=== PATIENT | male | born 1980 | race Caucasian/White ===

== ENCOUNTER → 2023-11-03 08:02 | Outpatient (REF) | payer BC, SELFPAY | LOC: RAD 08:02 | PROVIDERS: ATTENDING PHYSICIAN Surgery; FAMILY PHYSICIAN Physician Assistant Medical | DX: K63.5 Polyp of colon (principal) | CPT/HCPCS: 71250; 74176 ==

== ENCOUNTER 2023-11-07 06:31 | Inpatient (IN) | payer BC, SELFPAY ==
[2023-10-31 07:33] VITALS: BMI 26.3
[2023-10-31 09:08] LABS: Hematocrit 44.5 % (39.0-52.0); Hemoglobin 15.2 g/dL (13.0-18.0); Mean Corp Hgb Conc. 34.2 g/dL (33.0-37.0); Mean Corpuscular Hgb 29.7 pg (27.0-31.0); Mean Corpuscular Volume 87.1 fL (80.0-94.0); Mean Platelet Volume 10.3 fL (7.4-10.4); Platelet Count 255 10^3/uL (130-400); Red Blood Cell Count 5.11 10^6/uL (4.70-6.10); Red Cell Dist. Width 13.2 % (11.5-14.5); White Blood Cell Count 6.5 10^3/uL (4.8-10.8)
[2023-10-31 09:36] LABS: INR 0.97; PT 12.9 Sec (11.4-14.6)
[2023-10-31 09:37] LABS: APTT 31.7 Sec (23.4-35.0)
[2023-10-31 09:54] LABS: ALT (SGPT) 26 U/L (0-50); AST (SGOT) 32 U/L (17-59); Albumin 4.7 g/dl (3.5-5.0); Alkaline Phosphatase 68 U/L (38-126); Blood Urea Nitrogen 14 mg/dl (9-20); Calcium 10.2 mg/dl (8.4-10.2); Carbon Dioxide 25 mmol/L (22-30); Chloride 104 mmol/L (98-107); Estimated Creatinine Clearance 99 ml/min; Glucose 94 mg/dl (70-99); Potassium 4.6 mmol/L (3.5-5.1); Sodium 140 mmol/L (135-145); Total Bilirubin 1.2 mg/dl (0.2-1.3); Total Protein 7.5 g/dl (6.3-8.2); eGFR > 60.00
[2023-10-31 10:49] LABS: CEA 3.66 ng/ml
[2023-10-31 12:16] LABS: Glycohemoglobin (HgbA1c) 5.5 % (4.0-5.6)
[2023-11-07] VITALS (16 sets, daily range): BP systolic 132–166; BP diastolic 81–109; BMI 26.3
[2023-11-07] MEDS: TYLENOL 1000 MG PO (10:50)
[2023-11-07] MEDS: LOVENOX 40 MG SC (10:51)
[2023-11-07] MEDS: ENTEREG 12 MG PO (10:51)
[2023-11-07] MEDS: NORMOSOL-R 1000 IV ×2 (10:52→17:15)
--- NOTE | 2023-11-07 16:36 | W.IMMPOSTOP ---
Surgical Immed Post Op Note
-
Primary Surgeon: Stuart Jose MD
Assistants: SUDHIR Del Real, Flower Salinas PA-C, GLENN Starkey
Pre-op Diagnosis: Cecal polyp
Post-op Diagnosis: Ascending colon polyp
Procedure Performed: Robotic right colectomy with isoperistaltic intracorporeal anastomosis
Anesthesia Type: GET
Specimen / Cultures: Right colon
Estimated Blood Loss: 27cc
Complications: None
Operative Findings: No evidence of metastatic disease
Carbon black in the proximal ascending colon
Large polypoid lesion in the proximal ascending colon
Patient's family updated.
[2023-11-07] MEDS: ZOFRAN 4 MG IV ×2 (17:16→22:45)
[2023-11-07] MEDS: TORADOL 15 MG IV ×2 (17:22→21:37)
[2023-11-07] MEDS: COMPAZINE 5 MG IV (17:47)
--- NOTE | 2023-11-07 18:06 | PTCARENOTE ---
Addendum... Patient has had small amounts of bile color secretions X4 despite antiemetics, DR Marcano aware and Dr Jose aware. Will allow more time in PACU, continue to manage.
[2023-11-07] MEDS: TYLENOL PO (18:36)
[2023-11-07] MEDS: TYLENOL 650 MG PO (21:35)
[2023-11-07] MEDS: CRESTOR 10 MG PO (21:35)
[2023-11-08] MEDS: TYLENOL PO (00:22)
[2023-11-08] MEDS: NORMOSOL-R 1000 IV ×3 (01:32→18:49)
[2023-11-08 03:30] VITALS: BP 128/79
[2023-11-08] MEDS: TORADOL 15 MG IV ×2 (03:51→09:07)
[2023-11-08] MEDS: TYLENOL 650 MG PO ×6 (03:57→23:09)
[2023-11-08 06:00] VITALS: BMI 25.2
[2023-11-08 06:35] LABS: % Immature Granulocytes 0.5 % (0-0.5); % Lymphocytes 6.5 % (20.5-51.1); % Monocytes 6.7 % (1.7-9.3); % Neutrophils 86.3 % (42.2-75.2); Absolute Immature Granulocytes 0.1 10^3/uL (0-0.05); Absolute Lymphocytes 0.7 10^3/uL (1.2-3.4); Absolute Monocytes 0.8 10^3/uL (0.1-0.6); Absolute Neutrophils 9.7 10^3/uL (1.4-6.5); Hematocrit 42.2 % (39.0-52.0); Hemoglobin 14.7 g/dL (13.0-18.0); Mean Corp Hgb Conc. 34.8 g/dL (33.0-37.0); Mean Corpuscular Hgb 29.9 pg (27.0-31.0); Mean Corpuscular Volume 85.8 fL (80.0-94.0); Mean Platelet Volume 9.7 fL (7.4-10.4); Nucleated Red Blood Cells % 0 % (-); Platelet Count 272 10^3/uL (130-400); Red Blood Cell Count 4.92 10^6/uL (4.70-6.10); Red Cell Dist. Width 12.5 % (11.5-14.5); White Blood Cell Count 11.2 10^3/uL (4.8-10.8)
[2023-11-08 07:00] VITALS: BP 138/75
[2023-11-08 07:06] LABS: Blood Urea Nitrogen 10 mg/dl (9-20); Calcium 9.4 mg/dl (8.4-10.2); Carbon Dioxide 25 mmol/L (22-30); Chloride 103 mmol/L (98-107); Estimated Creatinine Clearance 121 ml/min; Glucose 121 mg/dl (70-99); Potassium 4.6 mmol/L (3.5-5.1); Sodium 135 mmol/L (135-145); eGFR > 60.00
[2023-11-08] MEDS: PROTONIX 40 MG PO (09:07)
[2023-11-08] MEDS: ENTEREG 12 MG PO ×2 (09:07→20:28)
--- NOTE | 2023-11-08 10:07 | W.PN.CRS1 ---
Today's Communication / Plan
-
continue clears possible advancement later today
OOB
lovenox
d/c pina
Assessment/Plan
-
POD#1 Robotic right colectomy with isoperistaltic intracorporeal anastomosis
1. Vitals normal.
2. WBC 11.2, as expected post op. Labs otherwise normal.
3. OOB as tolerated.
4. Okay to shower.
5. D/C pina.
6. Lovenox, TEDS/SCDS for DVT prophylaxis.
7. Continue clears, possible advancement to fulls or low residue later today if feels up for it.
8. Pain medication: Tylenol/Toradol standing, Dilaudid PRN.
9. OR pathology pending.
Subjective Data
Procedure
11/07/2023- Robotic right colectomy with isoperistaltic intracorporeal anastomosis
Subjective Data
Date of Service: November 08, 2023
Patient states he vomited overnight. He has no flatus yet. He is burping. His pain is controlled.
Objective Data
-
Vital Signs
Temp Pulse Resp BP Pulse Ox
98.4 F 64 18 138/75 96
11/08/23 07:00 11/08/23 07:00 11/08/23 07:00 11/08/23 07:00 11/08/23 07:00
Intake & Output
11/07/23 11/08/23 11/09/23
06:59 06:59 06:59
Intake Total 500 / 500
Output Total 3380 / 3380
Balance -2880 / -2880
Intake:
IV fluids (Total) 500 / 500
normosol 500 / 500
Output:
Emesis 105 / 105
Urine, Pina 3275 / 3275
Other:
Number of immeasurable emeses? 2
Lab Results
11/08/23 05:56
11/08/23 05:56
Physical Exam
-
General: No Acute Distress and AOx3
Abdomen: Soft, Non Distended and Tender (around incisions)
Skin: Warm and Dry
Incision: Clear, Dry, Intact and Other (one left/midline incision with old blood, gauze applied. )
[2023-11-08 11:05] VITALS: BP 159/109
--- NOTE | 2023-11-08 11:47 | CM ---
Initial assessment completed with patient who lives with his and 14 y/o daughter in a 2 story farm house with basement and no stairs to enter. B/B on 2nd and /2 bath on . No DME or in-home services. [employer] patient was independent, drove and
worked as an environmental health officer. No psychiatric hospitalizations. Pharmacy is [facility] on [address] in [place] and PCP is Dr. Radha Jones in [place]. Anticipate no needs at discharge.
[2023-11-08 15:21] VITALS: BP 170/111
[2023-11-08] MEDS: TORADOL IV (17:28)
[2023-11-08] MEDS: CRESTOR 10 MG PO (17:57)
[2023-11-08] MEDS: DILAUDID 0.5 MG IV (18:50)
[2023-11-08] MEDS: TRANEXAMIC ACID 100 IV (20:29)
[2023-11-08 21:00] VITALS: BP 149/90
[2023-11-08 23:11] VITALS: BP 148/95
[2023-11-09] MEDS: TYLENOL 650 MG PO ×6 (03:59→23:43)
[2023-11-09] MEDS: DILAUDID 0.5 MG IV ×2 (04:00→08:59)
[2023-11-09 05:45] VITALS: BMI 24.5
[2023-11-09 06:18] LABS: % Basophils 0.4 % (0-2); % Eosinophils 0.6 % (0-6); % Immature Granulocytes 0.3 % (0-0.5); % Lymphocytes 21.7 % (20.5-51.1); % Monocytes 8.2 % (1.7-9.3); % Neutrophils 68.8 % (42.2-75.2); Absolute Lymphocytes 1.5 10^3/uL (1.2-3.4); Absolute Monocytes 0.6 10^3/uL (0.1-0.6); Absolute Neutrophils 4.8 10^3/uL (1.4-6.5); Hematocrit 36.6 % (39.0-52.0); Hemoglobin 12.5 g/dL (13.0-18.0); Mean Corp Hgb Conc. 34.2 g/dL (33.0-37.0); Mean Corpuscular Hgb 29.6 pg (27.0-31.0); Mean Corpuscular Volume 86.7 fL (80.0-94.0); Mean Platelet Volume 10.1 fL (7.4-10.4); Nucleated Red Blood Cells % 0 % (-); Platelet Count 240 10^3/uL (130-400); Red Blood Cell Count 4.22 10^6/uL (4.70-6.10); Red Cell Dist. Width 13.1 % (11.5-14.5)
[2023-11-09 07:42] VITALS: BP 158/98
[2023-11-09] MEDS: ENTEREG 12 MG PO ×2 (08:58→20:21)
[2023-11-09] MEDS: PROTONIX 40 MG PO (08:58)
--- NOTE | 2023-11-09 11:56 | W.PN.CRS1 ---
Today's Communication / Plan
-
advance diet
recheck h/h
Assessment/Plan
-
POD#2 Robotic right colectomy with isoperistaltic intracorporeal anastomosis
1. Vitals normal.
2. WBC 7.0, as expected post op. Labs otherwise normal.
3. OOB as tolerated.
4. Okay to shower.
5. Voiding post pina removal.
6. TEDS/SCDS for DVT prophylaxis.
7. Advance diet to low residue as tolerated.
8. Pain medication: Tylenol standing, Dilaudid PRN. Add po oxycodone.
9. OR pathology pending.
10. Recheck H/H at noon. Holding Toradol/Lovenox for now.
Subjective Data
Procedure
11/07/2023- Robotic right colectomy with isoperistaltic intracorporeal anastomosis
Subjective Data
Date of Service: November 09, 2023
Patient states he has no nausea or vomiting. He had some bleeding overnight and this morning in the toilet. He is having flatus and loose stool with blood.
Objective Data
-
Vital Signs
Temp Pulse Resp BP Pulse Ox
97.5 F 52 19 158/98 100
11/09/23 07:42 11/09/23 07:42 11/09/23 07:42 11/09/23 07:42 11/09/23 07:42
Intake & Output
11/08/23 11/09/23 11/10/23
06:59 06:59 06:59
Intake Total 500 / 500 1600 / 1600
Output Total 3380 / 3380 400 / 400
Balance -2880 / -2880 1200 / 1200
Intake:
Oral fluids 400 / 400
IV fluids (Total) 500 / 500 1100 / 1100
normosol 500 / 500
IV piggybacks 100 / 100
Output:
Emesis 105 / 105
Urine, Pina 3275 / 3275
Urine, Voided 400 / 400
Other:
Number of approximated MODERATE 2
amounts of urine
Number of immeasurable emeses? 2
Number of unmeasured liquid
stools
Rectum 1
Lab Results
11/08/23 05:56
Physical Exam
-
General: No Acute Distress and AOx3
Abdomen: Soft, Non Distended and Non Tender
Skin: Warm and Dry
Incision: Clear, Dry, Intact
[2023-11-09 12:16] LABS: Hematocrit 37.8 % (39.0-52.0)
[2023-11-09] MEDS: ZOFRAN 4 MG IV (13:35)
--- NOTE | 2023-11-09 14:42 | CM ---
Diet advanced to low residue. Discharge Plan of Care: Home with no needs. Patient in agreement.
[2023-11-09] MEDS: NORMOSOL-R 1000 IV (14:57)
[2023-11-09 15:04] VITALS: BMI 24.5
[2023-11-09 16:00] VITALS: BP 139/104
[2023-11-09] MEDS: LIDOCAINE 4% PATCH 1 PATCH TOPICAL (16:39)
[2023-11-09] MEDS: CRESTOR 10 MG PO (16:40)
[2023-11-09] MEDS: LOVENOX 40 MG SC (16:40)
[2023-11-09 23:41] VITALS: BP 156/122
[2023-11-09] MEDS: NORMOSOL-R IV (23:59)
[2023-11-10 03:00] VITALS: BP 154/91
[2023-11-10] MEDS: TYLENOL PO (04:00)
[2023-11-10 06:00] VITALS: BMI 23.9
[2023-11-10 07:09] VITALS: BP 152/116
[2023-11-10] MEDS: ENTEREG 12 MG PO (08:16)
[2023-11-10] MEDS: PROTONIX 40 MG PO (08:17)
[2023-11-10] MEDS: TYLENOL 650 MG PO ×2 (08:17→13:09)
[2023-11-10] MEDS: LIDOCAINE 4% PATCH TOPICAL (08:23)
--- NOTE | 2023-11-10 09:33 | W.PN.GS2 ---
Today's Communication / Plan
-
`
Assessment / Plan
-
Assessment: 43-year-old male POD #1 status post RAL right hemicolectomy
AF VSS
Postoperative oozing at anastomosis suspected however no significant bleeding. A.m. hemoglobin pending, yesterday follow-up hemoglobin 13.0
Plan: Continue low residue diet as tolerated.
If follow-up hemoglobin stable this a.m. and continues to feel well anticipate discharge home in afternoon.
Subjective Data
-
Date of Service: November 10, 2023
Patient seen and examined.
Continued loose/semiformed bowel movements. Less blood in stools visible intermittently
Minimal to no postoperative pain/discomfort
No nausea
Objective Data
-
Intake and Output
11/09/23 11/10/23 11/11/23
06:59 06:59 06:59
Intake Total 1600 / 1600 1160 / 1160
Output Total 400 / 400 400 / 400
Balance 1200 / 1200 760 / 760
Intake:
Oral fluids 400 / 400 960 / 960
IV fluids (Total) 1100 / 1100 200 / 200
IV piggybacks 100 / 100
Output:
Urine, Voided 400 / 400 400 / 400
Other:
Number of approximated MODERATE 2
amounts of urine
Number of unmeasured liquid
stools
Rectum 1
Vital Signs
Temp Pulse Resp BP Pulse Ox
98.0 F 91 14 152/116 98
11/10/23 07:09 11/10/23 07:09 11/10/23 07:09 11/10/23 07:09 11/10/23 07:09
Calcium 9.4 mg/dl (8.4-10.2) 11/08/23 05:56
Total Bilirubin 1.2 mg/dl (0.2-1.3) 10/31/23 07:30
AST 32 U/L (17-59) 10/31/23 07:30
ALT 26 U/L (0-50) 10/31/23 07:30
Alkaline Phosphatase 68 U/L (38-126) 10/31/23 07:30
Total Protein 7.5 g/dl (6.3-8.2) 10/31/23 07:30
Albumin 4.7 g/dl (3.5-5.0) 10/31/23 07:30
Physical Exam
-
NAD AAOx3
ABD: Soft, nondistended, nontender on palpation. Incision sites with surgical glue dressings.
[2023-11-10 09:44] LABS: Hematocrit 40.4 % (39.0-52.0); Mean Corp Hgb Conc. 34.7 g/dL (33.0-37.0); Mean Corpuscular Hgb 29.5 pg (27.0-31.0); Mean Corpuscular Volume 85.2 fL (80.0-94.0); Mean Platelet Volume 9.9 fL (7.4-10.4); Platelet Count 282 10^3/uL (130-400); Red Blood Cell Count 4.74 10^6/uL (4.70-6.10); Red Cell Dist. Width 12.8 % (11.5-14.5); White Blood Cell Count 6.6 10^3/uL (4.8-10.8)
[2023-11-10 10:10] LABS: Blood Urea Nitrogen 13 mg/dl (9-20); Carbon Dioxide 29 mmol/L (22-30); Chloride 98 mmol/L (98-107); Estimated Creatinine Clearance 99 ml/min; Glucose 110 mg/dl (70-99); Potassium 4.8 mmol/L (3.5-5.1); Sodium 135 mmol/L (135-145); eGFR > 60.00
--- NOTE | 2023-11-10 13:12 | W.DCSUMMARY ---
Discharge Summary
Discharge Data
Date of Admission: 11/07/23
Date of Discharge: 11/10/23
-
Pending Results: No
Hospital Course
Mr Chawla is a 43 yo male with a history of neoplastic polyp who presented for surgical management with robotic right colectomy. He tolerated the procedure well. He had some bloody stools post operatively and received TXA with resolution. Hemoglobin
remained stable throughout his admission. He was able to have diet slowly advanced and well tolerated. Pain was minimal and well controlled prior to discharge. Outpatient follow up planned in the coming weeks.
Discharge Plan
-
Patient Disposition: Home (Routine Discharge)
Discharge Diagnosis/Procedures: Robotic right colectomy
Condition: Good
Diet: Low Residue
Activity: No strenuous activity
Additional Activity: No lifting over 10lbs (gallon of milk) until cleared by your surgeon
Driving Restrictions: No driving for 1 week
Bathing Restrictions: OK to Shower
Wound Care: Allow glue to naturally fall off of your incisions. Okay to shower.
Referrals:
Florencio Jose MD [Active] - in two weeks
Virgen Jones PA [Family Provider] -
Prescriptions:
New
acetaminophen [acetaminophen] 325 mg tablet
650 mg PO Q4HPRN PRN (Reason: mild pain) Qty: 1 0RF
oxycodone 5 mg tablet
5 mg PO Q4HPRN PRN (Reason: breakthrough/severe pain) Qty: 10 0RF
Continued
multivitamin Tablet
1 tab PO DAILY
pantoprazole 40 mg Tablet,Delayed Release (Dr/Ec)
40 mg PO QPM
rosuvastatin 10 mg Tablet
10 mg PO QPM
Medical Marijuana
1 dose PO PRN PRN (Reason: PAIN)
Discontinued
metronidazole [Flagyl] 500 mg Tablet
500 mg PO PRE OP
neomycin 500 mg Tablet
500 mg PO PRE OP
Sutab 1.479-0.188- 0.225 gram Tablet
0 tab PO PRE OP
Discharge Orders:
Discharge Patient (As Directed); Ordered 11/10/23
Ordered By: Kaylene La
Discharge Date and Time
Discharge Date/Time: 11/10/23 13:39
Print Language: ARMENIAN
[2023-11-10 13:26] VITALS: BP 142/110
== END 2023-11-10 13:39 | disposition home or self-care (01) | DRG 331 ==
LOC: 2 SOUTH 06:31
PROVIDERS: Physician Assistant; Registered Nurse; Surgery; ADMITTING PHYSICIAN Surgery; FAMILY PHYSICIAN Physician Assistant Medical
PROC: 8E0W4CZ Robotic Assisted Procedure of Trunk Region, Percutaneous Endoscopic Approach (ICD-10-PCS; 2023-11-07)
PROC: 0DTF4ZZ Resection of Right Large Intestine, Percutaneous Endoscopic Approach (ICD-10-PCS; 2023-11-07)
DX: C18.9 Malignant neoplasm of colon, unspecified (principal)
CPT/HCPCS: 88309; 36415; 80048; 80053; 82378; 83036; 85014; 85018; 85025; 85027; 85610; 85730; 86850; 86900; 86901; J1335

== ENCOUNTER 2024-07-24 10:29 | Emergency (ER) | payer BC, SELFPAY ==
--- NOTE | 2024-07-24 10:43 | ED.GENMED ---
ED Provider Triage
-
Patient seen by provider in Triage?: Seen in Triage
Attestation: A medical screening examination has been initiated by a qualified medical provider. Based on the assessment performed at this time, it has been determined that an emergent medical condition may exist and the patient has been informed
that further medical evaluation and possible additional diagnostic testing may be needed.
HPI: 44yoM here with R flank pain. Dull pain x 2 days. Started with shooting pain today radiating to RLQ/testicle. Feels like prior kidney stones. +Nausea, no vomiting. No urinary symptoms.
GENERAL: Alert , in no apparent distress
EYE: No visual abnormalities.
NECK: Trachea midline
ENT: No visible abnormalities.
LUNGS: No acute respiratory distress
NEUROLOGICAL: Alert and oriented
SKIN: Skin intact. No visible changes.
MUSCULOSKELETAL: Moving extremities normally
PSYCH: Normal and appropriate interaction.
This is a medical evaluation conducted in person to initiate diagnostic evaluation and provide initial therapeutics. Please see further documentation by the treating clinician.
CBC, CMP, UA, and CT abdomen ordered.
History of Present Illness
General
Chief Complaint: Flank Pain
Past History
Past History
ED Past Medical History: None
ED Past Surgical History: None
Social History
Tobacco: Non-smoker
Course
Orders/Labs/Results
Orders:
Orders
07/24/24 10:44
CT Abd/pel Without Iv Or Oral Urgent
Comment:
Reason For Exam: R flank pain, hx of kidney stones
Complete Blood Count/With Diff Urgent
Comprehensive Metabolic Panel Urgent
Urinalysis Reflex To Culture Urgent
Vital Signs
Initial and Last Documented VS:
Initial Vital Signs
Temp Pulse Resp Pulse Ox
98.0 F 84 16 98
07/24/24 10:39 07/24/24 10:39 07/24/24 10:39 07/24/24 10:39
Last Documented Vital Signs
Temp Pulse Resp Pulse Ox
98.0 F 84 16 98
07/24/24 10:39 07/24/24 10:39 07/24/24 10:39 07/24/24 10:39
ED Attending Note
-
Portions of this chart may have been created with voice recognition software.� Occasional wrong word or��sound alike� substitutions may have occurred due to the inherent limitations of voice recognition software.
Discharge Plan
Departure
Prescriptions:
No Action
multivitamin Tablet
1 tab PO DAILY
pantoprazole 40 mg Tablet,Delayed Release (Dr/Ec)
40 mg PO QPM
rosuvastatin 10 mg Tablet
10 mg PO QPM
Medical Marijuana
1 dose PO PRN PRN (Reason: PAIN)
acetaminophen [acetaminophen] 325 mg tablet
650 mg PO Q4HPRN PRN (Reason: mild pain) Qty: 1 0RF
oxycodone 5 mg tablet
5 mg PO Q4HPRN PRN (Reason: breakthrough/severe pain) Qty: 10 0RF
Interventions
Interventions:
*Risk Screen - Suicide Last Done: 07/24/24 10:39
*Neglect/Abuse Screening Last Done: 07/24/24 10:39
Discharge Date and Time
Print Language: CHINESE
[2024-07-24 11:07] LABS: % Basophils 0.7 % (0-2); % Eosinophils 4.8 % (0-6); % Lymphocytes 26.8 % (20.5-51.1); % Monocytes 9.7 % (1.7-9.3); Absolute Eosinophils 0.2 10^3/uL (0-0.7); Absolute Lymphocytes 1.2 10^3/uL (1.2-3.4); Absolute Monocytes 0.4 10^3/uL (0.1-0.6); Absolute Neutrophils 2.6 10^3/uL (1.4-6.5); Hematocrit 42.8 % (39.0-52.0); Hemoglobin 15.1 g/dL (13.0-18.0); Mean Corp Hgb Conc. 35.3 g/dL (33.0-37.0); Mean Corpuscular Hgb 30.5 pg (27.0-31.0); Mean Corpuscular Volume 86.5 fL (80.0-94.0); Mean Platelet Volume 9.9 fL (7.4-10.4); Nucleated Red Blood Cells % 0 % (-); Platelet Count 268 10^3/uL (130-400); Red Blood Cell Count 4.95 10^6/uL (4.70-6.10); Red Cell Dist. Width 12.6 % (11.5-14.5); White Blood Cell Count 4.6 10^3/uL (4.8-10.8)
[2024-07-24 11:14] LABS: Urine Albumin Negative (Neg - Trace); Urine Bilirubin Negative (Negative); Urine Character Clear (Clear); Urine Color Yellow; Urine Glucose Negative (Negative); Urine Ketone Negative (Negative); Urine Leukocyte Negative (Negative); Urine Nitrite Negative (Negative); Urine Occult Blood Trace (Negative); Urine Urobilinogen Negative (Neg - 1+)
[2024-07-24 11:18] LABS: ALT (SGPT) 25 U/L (0-50); AST (SGOT) 30 U/L (17-59); Albumin 4.8 g/dl (3.5-5.0); Alkaline Phosphatase 57 U/L (38-126); Blood Urea Nitrogen 9 mg/dl (9-20); Calcium 9.7 mg/dl (8.4-10.2); Carbon Dioxide 29 mmol/L (22-30); Chloride 102 mmol/L (98-107); Glucose 95 mg/dl (70-99); Potassium 4.5 mmol/L (3.5-5.1); Sodium 137 mmol/L (135-145); Total Bilirubin 1.2 mg/dl (0.2-1.3); Total Protein 7.5 g/dl (6.3-8.2); eGFR > 60.00
--- NOTE | 2024-07-24 11:59 | ED.GENMED ---
Addendum entered and electronically signed by Genny Graves PA-C 07/24/24 16:40:
ED Provider Triage
-
Patient seen by provider in Triage?: Seen in Triage
Attestation: A medical screening examination has been initiated by a qualified medical provider. Based on the assessment performed at this time, it has been determined that an emergent medical condition may exist and the patient has been informed
that further medical evaluation and possible additional diagnostic testing may be needed.
HPI: 44yoM here with R flank pain. Dull pain x 2 days. Started with shooting pain today radiating to RLQ/testicle. Feels like prior kidney stones. +Nausea, no vomiting. No urinary symptoms.
GENERAL: Alert , in no apparent distress
EYE: No visual abnormalities.
NECK: Trachea midline
ENT: No visible abnormalities.
LUNGS: No acute respiratory distress
NEUROLOGICAL: Alert and oriented
SKIN: Skin intact. No visible changes.
MUSCULOSKELETAL: Moving extremities normally
PSYCH: Normal and appropriate interaction.
This is a medical evaluation conducted in person to initiate diagnostic evaluation and provide initial therapeutics. Please see further documentation by the treating clinician.
CBC, CMP, UA, and CT abdomen ordered.
Original Note:
History of Present Illness
General
Chief Complaint: Flank Pain
Source: patient
Exam Limitations: none
Time Seen by Provider: 07/24/24 11:57
Nursing documentation reviewed up to this point in time: agreed with
History of Present Illness
History of Present Illness:
44-year-old male presents to the ER complaining of right-sided flank pain and started several days ago. This does feel similar to his previous kidney stones. He reports today pain was more intense he has had waves of nausea. He presently reports
pain is better .
He has passed all of his kidney stones in the past. Denies any fever/chills.
Past History
Past History
ED Past Medical History: None
ED Past Surgical History: None
Social History
Tobacco: Non-smoker
Review of Systems
Review of Systems
Allergies reviewed?: Yes
All Other Systems: ROS reviewed and negative except as documented in HPI and ROS
Constitutional: Reports no symptoms; Denies fever, fatigue or chills
Respiratory: Reports no symptoms
Cardiac: Reports no symptoms
ABD/GI: Reports abdominal pain and nausea; Denies vomiting
: Reports flank pain (right flank pain radiating to right abdomen /groin/testicle region )
Musculoskeletal: Reports no symptoms
Skin: Reports no symptoms
Neurological: Reports no symptoms
Hematologic/Lymphatic: Reports no symptoms
Psychiatric: Reports no symptoms
Phy Exam
General Physical Exam
General Presentation: no apparent distress
General age: appears stated age
General Skin: warm and dry
General Habitus: normal
General Mental: alert
Gastrointestinal Exam
Gastrointestinal Exam: non tender and soft
Neurological Exam
Neurological Exam: alert and oriented x3
Musculoskeletal Exam
Musculoskeletal Exam: full ROM
Skin Exam
Skin Exam: normal color and warm/dry
Psychiatric Exam
Psychiatric Exam: normal mood/affect
Course
Orders/Labs/Results
Orders:
Orders
07/24/24 10:44
CT Abd/pel Without Iv Or Oral Urgent
Comment:
Reason For Exam: R flank pain, hx of kidney stones
07/24/24 10:56
Complete Blood Count/With Diff Urgent
Comprehensive Metabolic Panel Urgent
07/24/24 10:59
Urinalysis Reflex To Culture Urgent
Date Specimen was Collected: 07/24/24
Time Specimen was Collected: 10:57
Urine Microscopic Reflex Cult Urgent
Abnormal Lab Results
07/24/24 07/24/24
10:56 10:59
WBC 4.6 L 10^3/uL
(4.8-10.8)
Monocytes % 9.7 H %
(1.7-9.3)
Ur Occult Blood Reflex Trace A
(Negative)
Urine RBC 3-6 A /HPF
(0-2)
Urine Bacteria (Reflex) Few A
(Negative)
07/24/24 10:56
07/24/24 10:56
Vital Signs
Initial and Last Documented VS:
Initial Vital Signs
Temp Pulse Resp Pulse Ox
98.0 F 84 16 98
07/24/24 10:39 07/24/24 10:39 07/24/24 10:39 07/24/24 10:39
Last Documented Vital Signs
Temp Pulse Resp BP Pulse Ox
98.0 F 87 16 161/110 98
07/24/24 10:39 07/24/24 12:27 07/24/24 10:39 07/24/24 12:27 07/24/24 10:39
MDM/Problems Addressed
Differential Diagnosis Includes:
Not limited to renal colic less likely pyelonephritis
MDM/Problems Addressed:
Patient with previous kidney stones presents with right flank pain which felt similar to his previous stones in the past.
He has no acute distress and asymptomatic. CAT scan today does show a 4-5 mm calculus in the proximal right ureter. labs unremarkable. no evidence of UTI on UA.
There is also an essentially stable 1.3 cm partially exophytic upper pole left renal lesion not compatible with a simple cyst. This was stable in comparison to prior CTs however I did discuss with patient that he will need to have this further
evaluated as this was not able to be further evaluated without IV contrast.
Discussed close follow-up with urology will DC on Flomax. patient wishes to take Advil if needed and nothing stronger. he is nontoxic-appearing stable afebrile no acute distress, no infection in urine.
*Radiology
Radiology exam reviewed: radiology read reviewed
*Pulse Oximetry
Patient hypoxic: no
*Critical Care Note
Total Time (30-74mins, 75-104mins- exclusive of procedures): Not Applicable
ED Attending Note
-
Portions of this chart may have been created with voice recognition software.� Occasional wrong word or��sound alike� substitutions may have occurred due to the inherent limitations of voice recognition software.
Discharge Plan
Departure
Patient Disposition: Home (Routine Discharge)
Date of Disposition: 07/24/24
Time of Disposition: 12:18
Patient with high blood pressure during this ER visit?: Yes
Covid-19: Not Applicable
Discharge Problem:
Renal colic
Instructions: Kidney Stones (DC), BLOOD PRESSURE
Prescriptions:
New
tamsulosin [Flomax] 0.4 mg capsule
0.4 mg PO DAILY Qty: 7 0RF
No Action
multivitamin Tablet
1 tab PO DAILY
pantoprazole 40 mg Tablet,Delayed Release (Dr/Ec)
40 mg PO QPM
rosuvastatin 10 mg Tablet
10 mg PO QPM
Medical Marijuana
1 dose PO PRN PRN (Reason: PAIN)
acetaminophen [acetaminophen] 325 mg tablet
650 mg PO Q4HPRN PRN (Reason: mild pain) Qty: 1 0RF
oxycodone 5 mg tablet
5 mg PO Q4HPRN PRN (Reason: breakthrough/severe pain) Qty: 10 0RF
Referrals:
Virgen Jones PA [Family Provider] -
Don Goodwin Jr., MD [Active] -
Activity Restrictions/Additional Instructions:
Rest, increase fluids, you may take ibuprofen if needed for pain and Tylenol as well. A prescription for Flomax was sent to pharmacy take as directed. Follow-up closely with urology please call them in the next of days for reevaluation of your
symptoms and also for reevaluation of additional CAT scan findings as reviewed. Return if any worsening of symptoms
Interventions
Interventions:
*Risk Screen - Suicide Last Done: 07/24/24 10:39
*Neglect/Abuse Screening Last Done: 07/24/24 10:39
ED- Fall Risk Assessment Last Done: 07/24/24 12:03
*ED COVID-19 Vaccine History Last Done: 07/24/24 12:04
*Nursing Disposition Last Done: 07/24/24 12:27
KD-Ooaprg-Efvylxzuro Assessment Last Done: 07/24/24 12:03
Discharge Date and Time
Discharge Date/Time: 07/24/24 12:28
Print Language: TAMAZIGHT
[2024-07-24 12:03] VITALS: BMI 26.4
[2024-07-24 12:04] LABS: Urine Bacteria Few (Negative); Urine Urothelial Cell 0-2 /LPF (FEW); Urine White Cell 0-2 /HPF (0-5)
[2024-07-24 12:27] VITALS: BP 161/110
== END 2024-07-24 12:28 | disposition home or self-care (01) ==
LOC: EMR 10:29
PROVIDERS: Physician Assistant; EMERGENCY PHYSICIAN Emergency Medicine; FAMILY PHYSICIAN Physician Assistant Medical
DX: N20.0 Calculus of kidney (principal); R11.0 Nausea; E78.5 Hyperlipidemia, unspecified; Z87.442 Personal history of urinary calculi; Z87.820 Personal history of traumatic brain injury; Z87.891 Personal history of nicotine dependence; Z88.2 Allergy status to sulfonamides
CPT/HCPCS: 99284; 74176; 80053; 81003; 81015; 85025